=== PATIENT | female | born 1945 | race Caucasian/White ===

== ENCOUNTER 2016-08-24 21:26 | Emergency (ER) | payer BC, MEDICARE, OTHER ==
[~2016-08-24] VITALS: Ht 165.1 cm; Wt 83.2 kg
[~2016-08-24 21:26] MED LIST: BRIN3SUS OPB; CALCTAB5 PO; LEVO50TA6 PO; MULT-506 PO; TRAV0.00 OP
[2016-08-24 21:30] VITALS: TEMP 36.9; Ht 165.1 cm; Wt 83.2 kg
--- NOTE | 2016-08-24 22:10 | EMERGENCY ROOM VISIT NOTE ---
History Report prepared by Maximino: Nino Mckinney Under the Supervision of: Dr. Lebron Khan M.D. 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 The patient slipped on the rug in her kitchen and fell onto her left side. During the fall, she injured her left arm and left knee. She states that her arm is significantly worse than her knee. She did not hit her head or lose consciousness. She also did not experiencing any abnormal symptoms prior to this fall. She denies any dizziness, numbness, headache, chest pain, or recent illness. At its worst, her arm pain is a 10/10, but right now it is only a 5/10. She describes it as a dull ache at rest, and a sharp pain with movement. Movement worsens her pain. She states her knee is not bothering her at the moment. 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 A total of 10 systems reviewed and were otherwise negative. Past Medical & Surgical Medical Problems: (1) Anemia Family History Cancer Diabetes mellitus Heart disease Hypertension Social History Smoking Status: Never Smoker Smokeless Tobacco Use: No Drug Use: none Marital Status: Housing Status: lives with family Occupation Status: employed Current/Historical Medications Scheduled Brinzolamide-Brimonidine Tartr (Simbrinza), 1 DROP OPB BID Calcium (Caltrate), 600 MG PO DAILY Levothyroxine Sodium (Levothyroxine Sodium), 1 TAB PO DAILY Multivitamin (Multivitamin), 1 TAB PO DAILY Travoprost (Travatan Z), 1 DROPS OP HS Scheduled PRN Oxycodone Ir (Roxicodone Ir), 1-2 TAB PO Q4H PRN for Pain Allergies Coded Allergies: Aspirin (Verified Allergy, Unknown, CAUSES HER TO BLEED, 07/12/15) Physical Exam Vital Signs Date Time Temp Pulse Resp B/P Pulse Ox O2 Delivery O2 Flow Rate FiO2 08/24/16 23:20 93 18 149/93 94 Room Air 08/24/16 21:30 36.9 87 18 158/94 96 Room Air Physical Exam GENERAL: Patient is uncomfortable appearing and in mild acute distress. HEENT: No acute trauma, normocephalic atraumatic, mucous membranes moist, no nasal congestion, no scleral icterus. NECK: No stridor, no adenopathy, no meningismus, trachea is midline. LUNGS: No dyspnea. Clear to auscultation and equal bilaterally. No wheeze, no rhonchi. HEART: Regular rate and rhythm. No murmurs, rubs, gallops appreciated. ABDOMEN: Soft, nontender, bowel sounds positive, no masses appreciated, no peritonitis. BACK: No midline tenderness, no CVA tenderness EXTREMITIES: Tenderness to palpation of the left deltoid extending to the left posterior shoulder. Pain with ROM of the left shoulder. Mild bruising to the left anterior knee. No pain with ROM. No pain with palpation. Distal N/V intact. NEUROLOGIC: Alert and oriented, no acute motor or sensory deficits, no focal weakness, cranial nerves grossly intact. SKIN: No rash, no jaundice, no diaphoresis. Medical Decision & Procedures ER Provider Diagnostic Interpretation: X ray results are stated below per my interpretation and the radiologist's interpretation. LEFT SHOULDER MIN 2 VIEWS ROUTINE CLINICAL HISTORY: Left shoulder pain status post trauma COMPARISON: None. DISCUSSION: There is a nondisplaced fracture of the humeral neck. The fracture extends to the greater tuberosity. There is no dislocation. IMPRESSION: Fracture of the left humeral neck and greater tuberosity. No evidence of dislocation. Electronically signed by: Moshe Taylor M.D. 08/24/2016 10:54 PM Dictated Date/Time: 08/24/2016 10:52 PM LEFT HUMERUS MIN 2 VIEWS ROUTINE CLINICAL HISTORY: Left humeral pain status post trauma COMPARISON: None. DISCUSSION: There is a proximal humeral fracture with involvement of the greater tuberosity and humeral neck. No dislocations are visualized. No additional humeral fractures are visualized. IMPRESSION: Nondisplaced proximal humeral fracture Electronically signed by: Moshe Taylor M.D. 08/24/2016 10:52 PM Dictated Date/Time: 08/24/2016 10:51 PM Medications Administered Medications (Trade) Dose Ordered Sig/Rao Route Start Time Stop Time Status Last Admin Dose Admin Oxycodone/ Acetaminophen (Percocet 5-325mg Tab) 1 tab NOW ONCE PO 08/24/16 22:15 08/24/16 22:16 DC 08/24/16 22:27 1 TAB Ondansetron HCl (Zofran Odt) 4 mg ONE ONCE PO 08/24/16 22:15 08/24/16 22:16 DC 08/24/16 22:26 4 MG Oxycodone HCl (Roxicodone Immediate Rel 5MG Home Pack) 1 homepack UD ONCE PO 08/24/16 23:15 08/24/16 23:16 DC 08/24/16 23:15 1 HOMEPACK Ondansetron HCl (ZOFRAN ODT 4MG Home Pack) 1 homepack UD ONCE PO 08/24/16 23:15 08/24/16 23:16 DC 08/24/16 23:14 1 HOMEPACK ED Course 2147: The patient was evaluated in room C9. A complete history and physical exam was performed. 2215: Ordered Ondansetron HCl 4 mg PO, Oxycodone/Acetaminophen 1 tab PO 2315: Ordered Ondansetron HCl 1 homepack PO, Oxycodone HCl 1 homepack PO 2320: Reevaluated the patient. Discussed results and discharge instructions: She verbalized understanding and agreement. The patient is ready for discharge. Medical Decision Differential diagnoses include dislocation, fracture, sprain, and contusion. 71 yr old very pleasant female with mechanical fall resulting in left shoulder injury. Initially some left knee pain but none now and walking without issue. She clearly has non-displace humeral head fracture. No other injuries. No head injury, neck pain and is not on blood thinners. Did well with narcotic here. Reviewed instructions regarding narcotics and humeral head fractures. Case management in to discuss with patient to help with ortho follow up in 1 week. Impression Primary Impression: Fracture of humeral head, left, closed Scribe Attestation The scribe's documentation has been prepared under my direction and personally reviewed by me in its entirety. I confirm that the note above accurately reflects all work, treatment, procedures, and medical decision making performed by me. Departure Information Dispostion Home / Self-Care Prescriptions Oxycodone Ir (Roxicodone Ir) 5 Mg Tab 1-2 TAB PO Q4H Y for Pain, #25 TAB Prov: Lebron Khan M.D. 08/24/16 Referrals Ra Monteiro M.D. (PCP) Jeronimo Kwon D.O. Forms HOME CARE DOCUMENTATION FORM, IMPORTANT VISIT INFORMATION Patient Instructions ED Fx Upper Ext, My [facility] Additional Instructions You have received a narcotic pain medication prescription. These medications may cause drowsiness and should not be used with other sedative medications. Do not drive, drink alcohol, perform dangerous activities, nor make important decisions after taking these medications. termination clerk use or inappropriate use may lead to addiction. Problem Qualifiers Primary Impression: Fracture of humeral head, left, closed Encounter type: initial encounter Qualified Codes: S42.292A - Other displaced fracture of upper end of left humerus, initial encounter for closed fracture
[2016-08-24] MEDS ORDERED: OXYCODONE/ACETAMINOPHEN 5-325 TAB PO ONE (22:15)
[2016-08-24] MEDS ORDERED: ONDANSETRON 4MG OD TAB PO ONE (22:15)
--- NOTE | 2016-08-24 22:54 | DIAGNOSTIC IMAGING REPORT ---
LEFT HUMERUS MIN 2 VIEWS ROUTINE CLINICAL HISTORY: Left humeral pain status post trauma COMPARISON: None. DISCUSSION: There is a proximal humeral fracture with involvement of the greater tuberosity and humeral neck. No dislocations are visualized. No additional humeral fractures are visualized. IMPRESSION: Nondisplaced proximal humeral fracture Electronically signed by: Moshe Taylor M.D. 08/24/2016 10:52 PM Dictated Date/Time: 08/24/2016 10:51 PM
--- NOTE | 2016-08-24 22:56 | DIAGNOSTIC IMAGING REPORT ---
LEFT SHOULDER MIN 2 VIEWS ROUTINE CLINICAL HISTORY: Left shoulder pain status post trauma COMPARISON: None. DISCUSSION: There is a nondisplaced fracture of the humeral neck. The fracture extends to the greater tuberosity. There is no dislocation. IMPRESSION: Fracture of the left humeral neck and greater tuberosity. No evidence of dislocation. Electronically signed by: Moshe Taylor M.D. 08/24/2016 10:54 PM Dictated Date/Time: 08/24/2016 10:52 PM
[2016-08-24] MEDS ORDERED: OXYC1TAB3 PO (23:12)
[2016-08-24] MEDS ORDERED: ONDANSETRON HOME PACK 4MG OD TAB PO ONE (23:15)
[2016-08-24] MEDS ORDERED: OXYCODONE IR HOME PACK PO ONE (23:15)
[2016-08-24 23:20] VITALS: BP 149/93; PULSE 93; O2SAT 94
== END 2016-08-24 23:25 | disposition home or self-care (01) ==
LOC: EDBD 21:26 → C.EDC 21:29
DX: S42.292A Other displaced fracture of upper end of left humerus, initial encounter for closed fracture (principal); W18.09XA Striking against other object with subsequent fall, initial encounter; D64.9 Anemia, unspecified; Z83.3 Family history of diabetes mellitus; Z82.49 Family history of ischemic heart disease and other diseases of the circulatory system

== ENCOUNTER → 2016-10-30 | Outpatient (CLI) | payer MEDICARE ==
[~2016-10-30] MED LIST changes: +OXYC1TAB3 PO
== END | disposition home or self-care (01) ==
LOC: C.CPL 13:19
DX: S42.295D Other nondisplaced fracture of upper end of left humerus, subsequent encounter for fracture with routine healing (principal); X58.XXXD Exposure to other specified factors, subsequent encounter

== ENCOUNTER → 2016-12-20 | Outpatient (CLI) | payer MEDICARE, OTHER ==
--- NOTE | 2016-12-20 13:22 | MAMMOGRAPHY REPORT ---
BILATERAL DIGITAL SCREENING MAMMOGRAM WITH CAD: 12/20/2016 CLINICAL HISTORY: Routine screening. Patient has no complaints. TECHNIQUE: Current study was also evaluated with a Computer Aided Detection (CAD) system. Bilateral CC and MLO views were obtained. COMPARISON: Comparison is made to exams dated: 10/03/2015 mammogram, 09/29/2014 mammogram, 09/27/2013 m ammogram, 09/24/2012 mammogram, 09/25/2011 mammogram, and 09/12/2010 mammogram - [facility]. BREAST COMPOSITION: There are scattered areas of fibroglandular density in both breasts. FINDINGS: No suspicious masses, calcifications, or areas of architectural distortion are noted in ei ther breast. There has been no significant interval change compared to prior exams. Bilateral circum scribed benign-appearing masses are stable. IMPRESSION: ACR BI-RADS CATEGORY 2: BENIGN There is no mammographic evidence of malignancy. A 1 year screening mammogram is recommended. The pa tient will receive written notification of the results. Approximately 10% of breast cancers are not detected with mammography. A negative mammographic report should not delay biopsy if a clinically suggestive mass is present. Hermila Waggoner M.D. ah/:12/20/2016 12:15:39 Solar Sales Energy Advisor: Gloria UGARTE(Rachel)(M), [facility] letter sent: Normal 1/2 BI-RADS Code: ACR BI-RADS Category 2: Benign
== END | disposition home or self-care (01) ==
LOC: C.MAMM 08:42
PROVIDERS: ATTEND Obstetrics & Gynecology
DX: Z12.31 Encounter for screening mammogram for malignant neoplasm of breast (principal)

== ENCOUNTER → 2017-02-06 | Outpatient (CLI) | payer MEDICARE | END | disposition home or self-care (01) | LOC: C.LABBFT 11:46 | PROVIDERS: ATTEND Internal Medicine | DX: E03.9 Hypothyroidism, unspecified (principal) ==

== ENCOUNTER → 2017-02-13 | Outpatient (CLI) | payer MEDICARE ==
[2017-02-13 12:10] LABS: HEMATOCRIT 39.5 % (37-47); MEAN CORPUSCULAR HEMOGLOBIN 29.7 pg (25-34); MEAN CORPUSCULAR HGB CONC 32.7 g/dl (32-36); MEAN PLATELET VOLUME 11.6 fL (7.4-10.4); PLATELET COUNT 188 K/uL (130-400); RED BLOOD COUNT 4.34 M/uL (4.2-5.4); WHITE BLOOD COUNT 4.46 K/uL (4.8-10.8)
[2017-02-13 12:17] LABS: ALT/SGPT 19 U/L (12-78); BLOOD UREA NITROGEN 20 mg/dl (7-18); BUN/CREATININE RATIO 22.1 (10-20); CALCIUM 9.4 mg/dl (8.5-10.1); CARBON DIOXIDE 27 mmol/L (21-32); CHLORIDE 107 mmol/L (98-107); CHOLESTEROL 219 mg/dl (0-200); CREATININE 0.89 mg/dl (0.60-1.20); GLUCOSE 81 mg/dl (70-99); POTASSIUM 4.1 mmol/L (3.5-5.1); SODIUM 141 mmol/L (136-145); TRIGLYCERIDES 91 mg/dl (0-150); VERY LOW DENSITY LIPOPROT CALC 18 mg/dl
[2017-02-13 12:20] LABS: ALKALINE PHOSPHATASE 65 U/L (45-117); AST/SGOT 15 U/L (15-37); CHOLESTEROL/HDL RATIO 2.8; HDL CHOLESTEROL 78 mg/dl; LDL CHOLESTEROL CALCULATED 123 mg/dl
== END | disposition home or self-care (01) ==
LOC: C.LABBFT 08:28
PROVIDERS: ATTEND Internal Medicine
DX: E78.5 Hyperlipidemia, unspecified (principal)

== ENCOUNTER → 2017-03-10 | Outpatient (CLI) | payer MEDICARE ==
[~2017-03-10] MED LIST changes: -OXYC1TAB3 PO
== END | disposition home or self-care (01) ==
LOC: C.MAMM 08:14
PROVIDERS: ATTEND Obstetrics & Gynecology
DX: Z12.31 Encounter for screening mammogram for malignant neoplasm of breast (principal); M85.88 Other specified disorders of bone density and structure, other site; M85.851 Other specified disorders of bone density and structure, right thigh; M85.852 Other specified disorders of bone density and structure, left thigh

== ENCOUNTER → 2017-03-24 | Outpatient (CLI) | payer MEDICARE | END | disposition home or self-care (01) | LOC: C.LABBFT 14:42 | PROVIDERS: ATTEND Internal Medicine | DX: M81.0 Age-related osteoporosis without current pathological fracture (principal) ==

== ENCOUNTER → 2017-12-24 | Outpatient (CLI) | payer MEDICARE, OTHER ==
[~2017-12-24] MED LIST changes: -BRIN3SUS OPB; +CALC600T37 PO; -CALCTAB5 PO; +CHOL1000 PO; +OXYC-57 PO; -TRAV0.00 OP
--- NOTE | 2017-12-24 13:39 | MAMMOGRAPHY REPORT ---
BILATERAL DIGITAL SCREENING MAMMOGRAM TOMOSYNTHESIS WITH CAD: 12/24/2017 CLINICAL HISTORY: Routine screening. Patient has no complaints. TECHNIQUE: The study was acquired using full field digital technology and interpreted from soft copy. Breast tomosynthesis in addition to standard 2D mammography was performed. Current study was also ev aluated with a Computer Aided Detection (CAD) system. COMPARISON: Comparison is made to exams dated: 12/20/2016 mammogram, 10/03/2015 mammogram, 09/29/2014 ma mmogram, 09/27/2013 mammogram, 09/24/2012 mammogram, and 09/25/2011 ultrasound - [facility] ter. BREAST COMPOSITION: There are scattered areas of fibroglandular density in both breasts. FINDINGS: There is a possible focal area of architectural distortion in the superior, posterior left breast, thought to project along the posterior nipple line on the CC view, and another possible area of architectural distortion in the lateral, middle one third of the right breast on the CC view, for which additional bilateral spot compression tomosynthesis views and possible ultrasound are recommend ed. There are stable benign circumscribed masses bilaterally. No obvious new masses, or suspicious calci fications are seen bilaterally. IMPRESSION: ACR BI-RADS CATEGORY 0: INCOMPLETE EVALUATION: NEED ADDITIONAL IMAGING EVALUATION The possible focal architectural distortion in the 12:00 posterior left breast and possible area of a rchitectural distortion seen in one view in the lateral right breast need additional imaging evaluati on. The patient will be called to schedule an appointment. Some breast cancers are not detected with mammography. A negative mammographic report should not paige y biopsy if a clinically suggestive mass is present. Sachi Proctor M.D. ay/:12/24/2017 08:43:33 Employment Legal Assistant: RT Ivett(R)(M), [facility] letter sent: Addl Imaging 0 BI-RADS Code: ACR BI-RADS Category 0: Incomplete Evaluation: Need Additional Imaging Evaluation
== END | disposition home or self-care (01) ==
LOC: C.MAMM 08:09
PROVIDERS: ATTEND Obstetrics & Gynecology
DX: Z12.31 Encounter for screening mammogram for malignant neoplasm of breast (principal); N64.89 Other specified disorders of breast

== ENCOUNTER → 2017-12-31 | Outpatient (CLI) | payer MEDICARE ==
--- NOTE | 2018-01-01 15:44 | MAMMOGRAPHY REPORT ---
BILATERAL DIGITAL DIAGNOSTIC MAMMOGRAM TOMOSYNTHESIS AND BILATERAL ULTRASOUND: 12/31/2017 CLINICAL HISTORY: 72-year-old woman called back from screening mammography for possible focal archite ctural distortion in the 12:00 to 1:00 posterior left breast and possible area of architectural disto rtion in the lateral, middle to anterior right breast on the CC view. Patient has a family history of breast cancer = sister. TECHNIQUE: Spot compression tomosynthesis CC and MLO views of each breast were obtained. COMPARISON: Comparison is made to exams dated: 12/24/2017 mammogram, 12/20/2016 mammogram, 10/03/2015 tiffany mogram, 09/29/2014 mammogram, 09/27/2013 mammogram, and 09/25/2011 ultrasound - [facility]. Ultrasound of was performed. BREAST COMPOSITION: There are scattered areas of fibroglandular density in both breasts. FINDINGS: The spot compression tomosynthesis views of the right breast demonstrate effacement of the possible area of distortion in the lateral, middle to anterior breast. There is no definite focal ar ea of distortion, suspicious mass or other suspicious abnormality. A stable benign circumscribed 11 mm round mass with associated coarse calcification in the upper outer right breast and stable benign circumscribed oval 15 mm mass in the lower inner right breast. Targeted ultrasound was also performed in the right breast slightly lateral to the nipple and no susp icious solid or cystic mass was identified. A round circumscribed 11 mm mass was identified in the 1 0:00 axis, correlating with the benign circumscribed mass with associated coarse calcifications seen mammographically. The spot compression tomosynthesis views of the left breast demonstrate a persistent subtle linear fo mildred area of asymmetry and associated architectural distortion, measuring approximately 3.7 cm in AP d imension by approximately 6 mm in transverse dimension. Further characterization with ultrasound was performed. Targeted ultrasound was performed throughout the upper outer, 12:00 and 11:00 axes of the left breast . A possible subtle texture difference is identified in the 1:00 left breast, 5 cm from the nipple b ut this sonographic finding is considered to vague to biopsy with ultrasound guidance. Therefore, wo uld prefer to biopsy this focal distortion with tomosynthesis mammograms. IMPRESSION: ACR BI-RADS CATEGORY 4: SUSPICIOUS, ULTRASOUND ACR BI-RADS CATEGORY 4: SUSPICIOUS 1. There is a persistent subtle focal asymmetry/focal architectural distortion measuring 3.7 cm in A P dimension in the 12:00 to 1:00 far posterior left breast, without definitive sonographic correlate identified. Further characterization with stereotactic tomosynthesis guided biopsy is recommended. 2. Effacement of the right lateral possible area of distortion and no suspicious sonographic correla te identified. This most likely represented overlapping fibroglandular tissue and is considered rico gn. These results and recommendations were discussed with the patient at the time of the exam. She tenta tively scheduled the left breast biopsy prior to leaving the department. Some breast cancers are not detected with mammography. A negative mammographic report should not paige y biopsy if a clinically suggestive mass is present. Sachi Proctor M.D. ay/:12/31/2017 14:58:38 Lead Atg Developer: RT Katherin(R)(M), [facility]; [facility] letter sent: Abnormal 4/5 OVERALL STUDY BIRADS: 4 Suspicious abnormality
== END | disposition home or self-care (01) ==
LOC: C.MAMM 12:52
PROVIDERS: ATTEND Obstetrics & Gynecology
DX: R92.8 Other abnormal and inconclusive findings on diagnostic imaging of breast (principal)

== ENCOUNTER → 2018-01-12 | Outpatient (CLI) | payer MEDICARE ==
--- NOTE | 2018-01-12 09:20 | Discharge Instructions ---
Discharge Instructions Procedure Procedure Date: Jan 12, 2018. Reason for visit: Left Focal Asymmetry/Distortion. Discharge Discharge Date: Jan 12, 2018. Discharge Diagnosis: status post breast biopsy Instructions Activity Recommendations: Additional Limitations (see below) Return to School/Work: no limitations Recommended Home Diet: No Limitations Provider Instructions: ACTIVITY RECOMMENDATIONS: * No lifting, pushing, pulling or exercising the affected side for three days. RETURN TO SCHOOL/WORK: * You may return to work/school after the procedure, but do not perform any strenuous activities for 24 to 48 hours. MEDICATIONS: * Tylenol (two 325 mg) every four to six hours if needed for mild pain (if not allergic to Tylenol). DIET: * Resume previous diet. SPECIAL CARE INSTRUCTIONS: * Keep biopsy site dry for 24 hours. May shower after 24 hours, but do not soak (bathe) incision. * May remove Tegaderm (plastic patch) 24 hours after procedure * Leave the steri-strips on for one week. Allow the steri-strips to fall off by themselves. If not off after one week, you may remove them. You may place a Bandaid crosswise over the strips, if desired. * Apply ice 10 minutes on and 10 minutes off as needed. * Wear a bra at bedtime to sleep more comfortably for 2-3 days. * Your referring physician should have the results after approximately 5 to 7 business days. * Call for unusual bleeding, fever, drainage, etc or if you have any questions call during normal business hours or after hours call Dr Waggoner, [phone]. FOLLOW UP VISIT: Follow-up with Referring Physician as scheduled. Allergies Coded Allergies: Aspirin (Verified Allergy, Unknown, CAUSES HER TO BLEED, 07/12/15) Alendronate (Unverified Adverse Reaction, Unknown, BODY DOESN'T FOSAMAX, ) [facility] Recommendations: Call your doctor if: * Temperature above 101 degrees * Pain not relieved by pain medicine ordered * There is increased drainage or redness from any incision * You have any unanswered questions or concerns. Your Doctors Instructions noted above were prepared by provider Hermila Waggoner. Patient Signature Section: Patient Instructions Signature Page Jenny Green Patient (or Guardian) Signature/Date: I have read and understand the instructions given to me by my caregivers. Caregiver/RN/Doctor Signature/Date: The above-named patient and/or guardian has received patient instructions on this date. + Original Patient Signature Page (only) stays with chart. Please make copy for patient.
--- NOTE | 2018-01-12 13:57 | MAMMOGRAPHY REPORT ---
UNILATERAL LEFT DIGITAL DIAGNOSTIC MAMMOGRAM TOMOSYNTHESIS: 01/12/2018 CLINICAL HISTORY: Status post left breast stereotactic biopsy. TECHNIQUE: Breast tomosynthesis in addition to standard 2D mammography was performed. Postprocedural left CC and ML tomosynthesis images were obtained. COMPARISON: Comparison is made to exams dated: 12/31/2017 mammogram, 12/24/2017 mammogram, 12/20/2016 tiffany mogram, 10/03/2015 mammogram, 09/29/2014 mammogram, and 12/31/2017 ultrasound - [facility] nter. BREAST COMPOSITION: There are scattered areas of fibroglandular density in left breast. FINDINGS: A new biopsy marker clip is seen within the left 12:00 posterior breast status post stereot actic biopsy of left breast focal asymmetry and associated architectural distortion. The biopsy clip is located at the site of the biopsied asymmetry on the cc view, however, there is probable mild sup erior migration of the biopsy marker clip from the biopsy site of approximately 2 cm, likely due to a ccordion effect, although the asymmetry is not well seen on the ML view. No significant postbiopsy h ematoma is seen. IMPRESSION: POST PROCEDURE IMAGING FOR MARKER PLACEMENT New biopsy marker clip status post left breast stereotactic biopsy. Note that there is probable supe rior migration of the biopsy clip from the biopsy site. Pathology results are pending. Some breast cancers are not detected with mammography. A negative mammographic report should not paige y biopsy if a clinically suggestive mass is present. Hermila Waggoner M.D. /:01/12/2018 09:55:47 Test Technician: RT Ivett(Rachel)(M), [facility] BI-RADS Code: Post Procedure Imaging For Marker Placement
--- NOTE | 2018-01-12 13:57 | MAMMOGRAPHY REPORT ---
STEREOTACTIC GUIDED BIOPSY LEFT BREAST: 01/12/2018 CLINICAL HISTORY: Focal asymmetry and associated architectural distortion in the left superior breast at approximately 12 to 1:00. PATIENT CONSENT: The procedure, risks, benefits, and alternatives of stereotactic biopsy with clip pl acement were discussed with the patient, and verbal and written consent was obtained. A timeout was performed immediately prior to the procedure. PROCEDURE DESCRIPTION: With tomosynthesis stereotactic guidance, aseptic technique, and lidocaine as a local anesthetic (1% lidocaine to anesthetize the skin and 1% lidocaine with epinephrine to anesthe tize the deeper tissues), the focal asymmetry with associated architectural distortion in the left 12 to 1:00 posterior breast was sampled multiple times with a 9-gauge vacuum-assisted biopsy needle (Mocapay). The path of approach was caudocranial. A metallic marker clip was placed at the biopsy site. Postprocedural mammograms were obtained to confirm clip placement; see separate dictation for details. Direct pressure was applied at the biopsy site until hemostasis was achieved. The patient tolerated the procedure without complication. She was given wound care instructions. COMPARISON: Comparison is made to exams dated: 12/31/2017 mammogram, 12/20/2016 mammogram, 12/24/2017 tiffany mogram, 12/31/2017 ultrasound, 10/03/2015 mammogram, and 09/29/2014 mammogram - [facility] nter. IMPRESSION: STEREOTACTIC GUIDED BIOPSY Tomosynthesis stereotactic guided biopsy of focal asymmetry and associated architectural distortion i n the left posterior breast at approximately 12 to 1:00, with clip placement. The patient will recei ve pathology results from her referring provider. Hermila Waggoner M.D. /:01/12/2018 09:53:21 Cutter Finisher: RT Ivett(R)(M), [facility]
== END | disposition home or self-care (01) ==
LOC: C.MAMM 08:34
PROVIDERS: ATTEND Obstetrics & Gynecology
DX: R92.8 Other abnormal and inconclusive findings on diagnostic imaging of breast (principal); N64.89 Other specified disorders of breast

== ENCOUNTER 2024-02-02 06:11 | Observation (INO) ==
--- NOTE | 2023-12-26 14:00 | PAT Medication Instructions ---
Medication Instructions Date of Service December 26, 2023 Home Medications calcium carbonate (Calcium 600) 600 mg PO QAM cholecalciferol (vitamin D3) 25 mcg (1,000 unit) tablet 1,000 unit PO QAM multivitamin 1 tab PO QAM timolol maleate 0.5 % once daily eye drops 1 drp ophthalmic (eye) BID atorvastatin 20 mg tablet 20 mg PO QAM doxycycline hyclate 50 mg tablet 50 mg PO BID levothyroxine 50 mcg tablet 50 mcg PO UD neomycin-polymyxin B-dexameth eye drops,suspension 3 drp ophthalmic (eye) QID Continue as directed levothyroxine 50 mcg tablet 50 mcg PO UD STOP taking 24 hours before surgery neomycin-polymyxin B-dexameth eye drops,suspension 3 drp ophthalmic (eye) QID DO NOT take the morning of surgery calcium carbonate (Calcium 600) 600 mg PO QAM cholecalciferol (vitamin D3) 25 mcg (1,000 unit) tablet 1,000 unit PO QAM multivitamin 1 tab PO QAM Take morning of surgery With a small sip of water, OTHERWISE NOTHING TO EAT OR DRINK AFTER MIDNIGHT: timolol maleate 0.5 % once daily eye drops 1 drp ophthalmic (eye) BID atorvastatin 20 mg tablet 20 mg PO QAM doxycycline hyclate 50 mg tablet 50 mg PO BID Take evening before surgery timolol maleate 0.5 % once daily eye drops 1 drp ophthalmic (eye) BID doxycycline hyclate 50 mg tablet 50 mg PO BID Other Notes If you have any questions please call us at [phone] or [phone] or [phone] or [phone]
--- NOTE | 2024-01-07 11:03 | Anesthesiology Consultation ---
Date of Service January 07, 2024 Assessment & Plan (1) Encounter for pre-operative examination: - Outpatient joint assessment: Patient is currently scheduled for inpatient pathway. If re-evaluated and patient/surgeon requests outpatient pathway, patient is acceptable candidate for outpatient joint program from anesthesia standpoint pending surgeon's office assessment of pt motivation/support/completion of same day joint program preop requirements. Chart Review Chart Review: Acceptable Risk for Surgery and Patient seen in Pre Admission Testing Teaching & Discussion Pre-Anesthesia Teaching/Discussion Notes: Instructed NPO after midnight before surgery, except medications with 15 cc of water. Medication instructions provided according to the PAT guidelines. History Surgery Operation Date: 02/02/24 08:40 Proposed Procedures p Left Total Knee Arthroplasty - Germain Coleman, Height/Weight Height: 5 ft 5.5 in Weight: 78.5 kg Allergies Allergy/AdvReac Type Severity Reaction Status Date / Time aspirin Allergy Severe CAUSES HER Verified 12/25/23 07:54 TO BLEED alendronate sodium AdvReac Intermediate Body Verified 12/25/23 07:54 doesn't tolerate FOSAMAX "gets nauseated" watermelon AdvReac Intermediate Vomiting Verified 12/25/23 07:54 Medications Home Medications Medication Instructions Recorded Confirmed Last Taken calcium carbonate (Calcium 600) 600 mg PO QAM 09/22/18 12/25/23 04/11/22 cholecalciferol (vitamin D3) 25 1,000 unit PO QAM 09/22/18 12/25/23 04/11/22 mcg (1,000 unit) tablet multivitamin 1 tab PO QAM 09/22/18 12/25/23 04/11/22 timolol maleate 0.5 % once daily 1 drp ophthalmic (eye) BID 08/27/23 12/25/23 Un known eye drops atorvastatin 20 mg tablet 20 mg PO QAM 12/25/23 12/25/23 Unknown levothyroxine 50 mcg tablet 50 mcg PO UD 12/25/23 12/25/23 Unknown Past Medical History Medical History (Updated 01/07/24 @ 11:10 by Naty Gonzalez PA-C) Anemia 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 Exercise / Class Metabolic Activity II 4-5 Yardwork/Stairs/Walk up hill (denies chest discomfort or shortness of breath with one flight of stairs) Past Family History Family History Aunt Family history of diabetes mellitus Sister Family history of diabetes mellitus Breast cancer Father Lung cancer Other No family history of adverse response to anesthesia Denies family history of Ovarian cancer Prostate cancer Myocardial infarction Colorectal cancer Past Surgical History Surgical History History of arthroscopy of left shoulder History of bilateral cataract extraction History of bilateral tubal ligation History of colonoscopy History of hysterectomy History of left breast biopsy benign History of tonsillectomy and adenoidectomy History of tooth extraction History of wisdom tooth extraction Status post glaucoma surgery Past Anesthesia History No Hx of Anesthesia Complications and Other (several family members with PONV) History of PONV History of PONV (denies needing scop patch) and Hx of Motion Sickness Social History Smoking Status: Never smoker Do You Dip or Chew Tobacco: No Hx Alcohol Use: Yes Alcohol type: wine alcohol intake frequency: holidays/special occasions only Hx Substance Use: No substance use type: does not use Review of Systems Patient denies chest pain, shortness of breath, dyspnea on exertion, snoring, witnessed apneas, fever, chills, cough, wheezing, or palpitations. Physical Exam Vital Signs Vitals BP 132/82 P 76 TEMP 97.5 SP02 96% on RA RESP 18 Physical Patient resting comfortably in chair in no acute distress, alert and oriented, responding appropriately throughout visit Full cervical extension range of motion without pain TMD 3.5 finger breadths Mallampati Score 2 Dentition: several caps, denies chipped or loose teeth, implants or bridges Lungs: normal respiratory effort. Good air movement, clear throughout to auscultation, no adventitious breath sounds Cardiac: regular rate and rhythm, no murmurs noted Carotid arteries: negative bruit bilat Lab Results Anesthesia Preop Results Results Anesthesia Widget: WBC 5.11 K/ul (4.8-10.8) 01/07/24 Hgb 12.7 g/dl (12.0-16.0) 01/07/24 Hct 38.2 % (37.0-47.0) 01/07/24 Plt 161 K/uL (130-400) 01/07/24 Na 139 mmol/L (136-145) 01/07/24 K 4.0 mmol/L (3.5-5.1) 01/07/24 Cl 106 mmol/L (98-107) 01/07/24 CO2 27 mmol/L (21-32) 01/07/24 BUN 18 mg/dl (6-23) 01/07/24 Creat 0.81 mg/dl (0.6-1.2) 01/07/24 Glucose Level 91 mg/dl (70-99(Fasting)) 01/07/24 PT 10.2 Seconds (9.0-12.0) 01/07/24 PTT 28 Seconds (21-31) 01/07/24 INR 0.9 (0.9-1.1) 01/07/24 Blood Type O Positive 01/07/24 Antibody Screen NEGATIVE 01/07/24 Testing Electrocardiogram Date: 01/07/24 NSR, rate 75 bpm Minimal voltage criteria for LVH, may be normal variant Nonspecific T wave abnormality inferolateral leads Chest X-Ray Date: 01/07/24 No acute process.
[~2024-02-02 06:11] MED LIST changes: +ALLERGY Noted to ORDERED Medication SCH; -CALC600T37 PO; -CHOL1000 PO; -LEVO50TA6 PO; -MULT-506 PO; -OXYC-57 PO
[2024-02-02] MEDS ORDERED: ROPIVACAINE 0.5% 5 MG/ML 30 ML VIAL ONE (06:17)
[2024-02-02] MEDS ORDERED: BUPIVACAINE 0.5 % 5 MG/1 ML PF 10ML VIAL ONE (06:17)
[2024-02-02] MEDS ORDERED: BUPIVACAINE 0.25% PF 30 ML VIAL ONE (06:19)
--- NOTE | 2024-02-02 06:31 | History & Physical Bridge Note ---
Date of Service February 02, 2024 History & Physical Bridge Note I have examined the patient, reviewed the History & Physical and in the interval since the performance of the History & Physical I have noted the following changes of clinical significance: no changes noted
[2024-02-02] MEDS: LR 60ML/HR IV SCH (06:52)
[2024-02-02] MEDS: GABAPENTIN 300 MG CAP PO SCH (06:54)
[2024-02-02] MEDS: FAMOTIDINE 20 MG TAB PO SCH (06:54)
[2024-02-02] MEDS: ACETAMINOPHEN 500 MG TAB PO SCH ×2 (06:54→14:12)
[2024-02-02] MEDS: LR 500ML BOLUS, THEN 15ML/HR IV SCH (07:00)
[2024-02-02] MEDS: dexAMETHasone**PF** 10 MG/ML VIAL IV SCH (07:08)
[2024-02-02] MEDS ORDERED: MIDAZOLAM HCL 1 MG/ML 2ML VIAL ONE (07:37)
[2024-02-02] MEDS ORDERED: fentaNYL citrate PF 100 MCG/2 ML VIAL ONE (07:37)
[2024-02-02] MEDS ORDERED: ATROPINE SULFATE 0.1 MG/ML 10ML SYR IV PRN (08:11)
[2024-02-02] MEDS ORDERED: ePHEDrine sulfate 50 MG/ML AMP IV PRN (08:11)
[2024-02-02] MEDS ORDERED: fentaNYL citrate PF 100 MCG/2 ML VIAL IV PRN (08:11)
[2024-02-02] MEDS ORDERED: ONDANSETRON INJ 2 MG/ML 2 ML VIAL IV PRN ×2 (08:11→11:20)
[2024-02-02] MEDS: TRANEXAMIC ACID 1,000 MG **IV Pre-op IV SCH (08:22)
[2024-02-02] MEDS: ceFAZolin 2000MG 2,000 MG/15 ML SYR IV SCH ×2 (08:51→17:44)
[2024-02-02] MEDS ORDERED: LIDOCAINE 2% 2 ML VIAL/AMP(20MG/ML) INFIL ONE (09:30)
[2024-02-02] MEDS ORDERED: PROPOFOL IV EMULSION 10 MG/ML 20 ML VIAL IV ONE (09:30)
[2024-02-02] MEDS: ROPIV 0.5% 246mg, Ketorolac 30mg, EPINEPHrine 0.5mg in NSS INFIL SCH (09:37)
[2024-02-02] MEDS: TRANEXAMIC ACID 1,000 MG **IV Intra-op IV SCH (09:50)
--- NOTE | 2024-02-02 09:54 | Operative Report ---
PG Post Operative Report Pre & Post Diagnosis Operation Date: 02/02/24 10:20 Pre-Op Diagnosis: Degenerative Joint Disease Knee Left Post-Op Diagnosis: Degenerative Joint Disease Knee Left I identified the patient and participated in the time-out.: Yes Procedure Operation Date: 02/02/24 10:20 Actual Procedures p Left Total Knee Arthroplasty(Left) - Germain Coleman DO Surgeon Germain Coleman DO Glove Operator Germain Benton PA-C Estimated Blood Loss 30 Findings Consistent with Post-Op Diagnosis Specimens Left femoral tibial bone Description of Procedure Implants used: I used a Radha Persona total knee arthroplasty system with a size 8 narrow femur, E tibia, 31 oval patella, and a size 11 medial congruent polyethylene be aring. All components were cemented in place with Biomet cement. Jenny arrived [facility] for the above procedure. She was seen in the preoperative holding area and the operative extremity was identified and signed. She was given a preoperative antibiotic, TXA, a spinal anesthetic and an adductor nerve block. She was taken back to the operating room and laid on the table in supine position. She was given basic sedation. The operative knee was then prepped and draped in sterile fashion. A timeout was done, and the patient and the operative extremity was properly identified. A midline incision was made directly over the patella. Dissection was taken down to the extensor mechanism. A subvastus arthrotomy was used. The medial retinaculum was released and the fat pad was mostly excised. The knee was flexed and the ACL, PCL, and meniscus were removed. A drill was sent down the center of the femoral canal followed by an intramedullary celio. Off that celio a distal femoral cutting block was placed. 9 mm was resected off the distal femur at 5 of valgus. A posterior referencing AP sizing guide was then placed on the distal femur. The femur measured to be a size 8. 2 drill holes were placed in 3 of external rotation. A 4-in-1 cutting block was then impacted into place. Anterior, posterior, and chamfer cuts were then made. The proximal tibia was then exposed. An external tibial alignment guide was placed. A tibial cut guide was then anchored in place and the proximal tibia was then resected. The posterior aspect of the knee was then opened up and any additional meniscus fragments and osteophytes were removed. The tibia measured to be a size E. The tibial plate was then placed in the appropriate rotation and the tibia was drilled and punched. Trial components were then placed. I used a size 11 medial congruent polyethylene insert. The knee was brought through a full range of motion and felt to be stable. The peg holes for the femoral component were then drilled. The patella was then everted and 9 mm was resected off the posterior aspect of the patella. The patella measured to be a size 31 oval. 3 peg holes were then drilled. A trial patella was placed. The knee was once again brought through a full range of motion and felt to be stable. Trial components were then removed. The surrounding soft tissues were injected with 100 cc of an orthopedic pain control cocktail. All components were then cemented into place with Biomet cement. The final polyethylene insert was then snapped into place. Once cement was dry the tourniquet was deflated. Hemostasis was obtained. A dilute betadyne lavage was then done for 3 minutes. The joint was then irrigated with normal saline solution. The subvastus arthrotomy was then closed with #1 Vicryl suture. The skin was closed with 2-0 Vicryl, 3-0V lock suture, and hermelindo. A soft compressive dressing was placed. She was then transferred to a hospital bed and taken to the postanesthesia care unit in stable condition. She tolerated the procedure well. Germain Benton PA-C, was present for the entire procedure. He was critical for patient positioning, prepping, draping, retraction exposure, wound closure and application of sterile dressing. I attest to the content of the Intraoperative Record and any orders documented therein. Any exceptions are noted below.
[2024-02-02] MEDS ORDERED: MAGNESIUM HYDROXIDE SUSP 30 ML UDC PO PRN (11:20)
[2024-02-02] MEDS ORDERED: bisacodyL 10 MG SUPP PR PRN (11:20)
[2024-02-02] MEDS ORDERED: HYDROmorphone INJ 0.5 MG/0.5 ML SYR IV PRN (11:20)
[2024-02-02] MEDS ORDERED: oxyCODONE HCL IR 5 MG TAB (IMMEDIATE RELEASE) PO PRN (11:20)
[2024-02-02] MEDS ORDERED: NALOXONE HCL 0.4 MG/1 ML VIAL/CARP IV PRN (11:20)
[2024-02-02] MEDS ORDERED: METOCLOPRAMIDE HCL INJ 5 MG/ML 2 ML VIAL IV PRN (11:20)
--- NOTE | 2024-02-02 11:32 | Anesthesiology Progress Note ---
Date of Service February 02, 2024 Anesthesia Post Procedure Vital Signs Vital Signs: Temp Pulse Resp BP BP Pulse Ox O2 Del Method 02/02/24 11:00 36.4 C L 77 16 138/80 100 Room Air 02/02/24 10:50 36.1 C L 71 21 139/76 97 Room Air 02/02/24 10:40 67 14 137/73 96 Room Air 02/02/24 10:30 69 18 145/79 H 97 Room Air 02/02/24 10:20 75 23 130/105 H 100 Oxymask 02/02/24 10:10 36.3 C L 77 17 132/81 96 Oxymask 02/02/24 07:20 170/91 H 02/02/24 07:11 171/98 H 02/02/24 06:49 36.5 C 76 20 183/100 H 192/92 H 100 Room Air O2 Flow Rate 02/02/24 11:00 02/02/24 10:50 02/02/24 10:40 02/02/24 10:30 02/02/24 10:20 4 02/02/24 10:10 4 02/02/24 07:20 02/02/24 07:11 02/02/24 06:49 Pain Intensity Left Knee: Pain Intensity: 0 Transfer of Care Handoff Completed per policy Notes Mental Status: alert / awake / arousable Patient Amnestic to Procedure: Yes Nausea / Vomiting: adequately controlled Pain: adequately controlled Airway Patency, RR, SpO2: stable & adequate BP & HR: stable & adequate Hydration State: stable & adequate Neuraxial Anesthesia: was administered and sensory block is resolving Anesthetic Complications: no major complications apparent and Pt Satisfied with anesthetic care
[2024-02-02] MEDS: SODIUM CHLORIDE 0.9% 1,000 ML IV SCH (11:39)
[2024-02-02] MEDS: KETOROLAC TROMETHAMINE 15 MG/ML VIAL IV SCH (11:45)
--- NOTE | 2024-02-02 11:59 | XRay Report ---
XR knee LT 1 or 2V routine HISTORY: 78 years-old Female Surgical Post Op left knee arthroplasty COMPARISON: 12/04/2022 TECHNIQUE: 2 views of the left knee FINDINGS: Corticated subcentimeter loose bodies within the suprapatellar space measuring up to 8 mm are unchang ed. Satisfactory alignment of the total joint arthroplasty and patellar resurfacing. Anterior midline skin hermelindo are present along with expected postoperative soft tissue swelling and deep tissue air. IMPRESSION: Satisfactory alignment of the total joint arthroplasty. ACT 112: Negative or not required by law. The above report was generated using voice recognition software. It may contain grammatical, syntax o r spelling errors. Electronically signed by: Jr Moctezuma M.D. 02/02/2024 11:58 AM
[2024-02-02] MEDS ORDERED: ONDANSETRON INJ 2 MG/ML 2 ML VIAL ONE (12:20)
[2024-02-02] MEDS: DOCUSATE SODIUM 100 MG CAP PO SCH (21:20)
[2024-02-02] MEDS: SENNA 8.6 MG TAB PO SCH (21:20)
[2024-02-02] MEDS: TIMOLOL MALEATE 0.5% OP SOLN 5 ML BTL OP SCH (21:21)
[2024-02-02] MEDS: ASPIRIN 81 MG ECTAB PO SCH (21:23)
[2024-02-03] MEDS: LEVOTHYROXINE SODIUM 50 MCG TABLET PO SCH (05:33)
[2024-02-03 07:20] VITALS: BP 152/84; PULSE 77; RESP 18; TEMP 97.5; O2SAT 100
--- NOTE | 2024-02-03 07:30 | Orthopedic Progress Note ---
Date of Service February 03, 2024 Assessment & Plan (1) Status post left knee replacement: Overall she is doing well. She is not having much pain in the left knee. She will be seen by physical therapy today for ambulation and range of motion exercises. She is on aspirin for DVT prophylaxis. The nursing staff can change her dressing after physical therapy. She can be discharged home later today. She will follow-up orthopedics in 2 weeks. Subjective Jenny was seen and examined at bedside this morning. Overall she is doing fairly well. She is not having much pain in the left knee. She has been up and ambulating to the bathroom. She has no complaints.. Review of Systems All systems reviewed & are unremarkable except as noted in HPI & below. Physical Exam On physical examination left knee, the dressing is clean and dry. Her leg is out full extension. She has active dorsiflexion plantarflexion of her left ankle.. Results & Data Results & Data Laboratory Results . Diagnostic Findings Postoperative x-rays of the left knee show the prosthesis to be in anatomic alignment without any evidence of fracture complication, or loosening.. PG Care Time/CCT Total # of Minutes Spent Total Time Spent with Patient: Total time spent is greater than 50% in coordination of care (as documented) at patient's floor/unit and/or counseling patient: Coding Level of Care Code 69205 Post Operative Follow-Up Diagnoses Status post left knee replacement Z96.652
--- NOTE | 2024-02-03 07:33 | Discharge Summary ---
Date of Service February 03, 2024 Principal Diagnosis Same as "Discharge Diagnosis" noted below under Discharge Instructions. Discharge Exam On physical examination left knee, the dressing is clean and dry. Her leg is out full extension. She has active dorsiflexion plantarflexion of her left ankle.. Discharge Data Procedures Performed Operation Date: 02/02/24 10:20 Actual Procedures p Left Total Knee Arthroplasty(Left) - Germain Coleman DO Ordered Studies 02/02/24 05:00 US - OR guided needle placemen Routine Hospital Course (1) Status post left knee replacement: On February 02, 2024 Jenny arrived at [facility] and underwent a left knee replacement without complication. She had a spinal anesthetic. Postoperatively she was transferred to the general orthopedic floors. Her hospital course was uneventful. On postop day #1, her vital signs were stable and her pain was well-controlled. She was able to participate well with physical therapy doing ambulation and range of motion exercises. She was then discharged to home. She will follow-up with orthopedics in 2 weeks. PG Care Time/CCT Total # of Minutes Spent Total Time Spent with Patient: Total time spent is greater than 50% in coordination of care (as documented) at patient's floor/unit and/or counseling patient: Discharge Plan Discharge Items Patient Disposition: Home - Self-Care Reason For Visit: DJD Knee Left Discharge Diagnosis: Left knee replacement Activity: Per Instructions section Non-emergency contact: Surgeon Call non-emergency contact if: your wound has increased redness and your wound has increased drainage Follow-up/Referrals: Jenae Bejarano CRNP [Primary Care Provider] - Diet: Regular Addtl Attending Provider Instructions: Activity and Therapy Recommendations: * If you are using [facility] then therapy will be provided at your home until they feel you have accomplished all of your goals. * If you are using [facility] then Physical Therapy will be provided until they feel you are ready to start Outpatient Physical Therapy. * If you are not using home therapy then Outpatient Physical Therapy should start about 3-5 days from your day of surgery. Therapy will last about 6-10 weeks * It is important not to put a pillow under your knee when you are relaxing or sleeping. It is just as important to make sure you are getting your knee perfectly straight as it is to regain your knee bend. * You were shown a series of exercises in the hospital. Do these exercises three times each day including the exercises you were shown in physical therapy. * Get up and walk several times each day. For the first four weeks, try not to stand or walk for more than one hour at a time. If you do stand or walk for more than one hour, you will not hurt anything, but your leg will likely swell. * As you feel comfortable, you may change from the walker or crutches to a cane and then to independent walking. Medications: * Narcotic You will likely be sent home from the hospital with a prescription for the narcotic pain medication that worked best throughout your stay. * Cefadroxil -take the antibiotic twice a day for 10 days to help prevent infection. * Aspirin Most patients will be required to take Aspirin 81mg twice a day for 6 weeks after surgery. This is obtained [id number] and a prescription is not necessary. * Other medications may be prescribed for specific circumstances. If you have any questions, please call the office at . * Resume previous home medications unless otherwise instructed TEDs/Elastic Stockings: The white elastic stockings help limit swelling and prevent blood clots from forming in your legs.~ The more you wear them, the more they work. Wear them for six weeks. Dressing Care: The dressing can be changed after physical therapy on postop day #1. Daily dry dressing changes for a few days, especially if the incision is still draining some. If the incision is not draining then you may leave the hermelindo open to air. If there is a little bit of drainage or if the hermelindo are getting stuck on your clothing then cover the incision with a dry dressing. The hermelindo will be removed at your 2 week follow-up appointment. Showering: You may shower 5 days from the day of surgery as long as the incision is no longer draining. You may shower with the hermelindo exposed. Let soapy water run over the hermelindo and pat them dry. Do not scrub or soak the incision. Things To Watch For: * Drainage from the incision site that occurs more than one week after your surgery. * Increased redness at the incision site. * Fever above 102 degrees Fahrenheit. * Unusual chest pain or shortness of breath. * Call [facility] at with any of the above problems Follow-Up Visit: Follow-up with Dr. Coleman's PA (Germain Benton) 2-3 weeks after your day of surgery. He will remove your hermelindo and answer any questions. If you have any additional questions or concerns, Dr Coleman is usually in the office at the same time and will be available An appointment was probably scheduled when you signed-up for surgery in the office. If you have any questions call Office Instructions: More detailed instructions as well as Frequently Asked Questions were provided in a folder by our office when you signed-up for surgery. Please review these instructions when you get home. If you have any further questions or concerns, please feel free to call the office at [phone] Pending Studies at Discharge: No Stand-Alone Forms: My [facility] Medications and DC Order Prescriptions: New oxycodone 5 mg Tablet 5 mg PO Q4H PRN (Reason: pain) Qty: 30 0RF cefadroxil 500 mg capsule 500 mg PO BID 10 Days Qty: 20 0RF aspirin 81 mg Tablet,Delayed Release (Dr/Ec) 81 mg PO BID 42 Days Qty: 0 0RF Continued levothyroxine 50 mcg tablet 50 mcg PO UD Qty: 90 3RF Rx Instructions: 50 mcg PO every morning on an empty stomach with 8 ounces of water and eat nothing for 30 minutes. on Friday take 1/2 tablet ; timolol maleate 0.5 % drops, once daily 1 drp ophthalmic (eye) BID multivitamin Tablet 1 tab PO QAM calcium carbonate [Calcium 600] 600 mg calcium (1,500 mg) Tablet 600 mg PO QAM cholecalciferol (vitamin D3) 1,000 unit Tablet 1,000 unit PO QAM atorvastatin 20 mg tablet 20 mg PO QAM Discharge Orders: Discharge Order (Routine); Ordered 02/03/24 Ordered By: Germain Coleman Admission Data Admit Date/Time: 02/02/24 10:12 Attending Provider: Germain Coleman Admit Provider: Germain Coleman Primary Care Provider: Jenae Bejarano
[2024-02-03] MEDS: MULTIVITAMIN TAB PO SCH (09:51)
[2024-02-03] MEDS: ATORVASTATIN 20 MG TAB PO SCH (09:51)
[2024-02-03] MEDS: dexAMETHasone 4 MG TAB PO SCH (10:40)
[2024-02-08] MEDS ORDERED: LEVOTHYROXINE SODIUM 25 MCG TABLET PO SCH (06:30)
== END 2024-02-03 11:21 | disposition home or self-care (01) ==
LOC: ASU 06:11 → 3E 06:11
DX: Z88.8 Allergy status to other drugs, medicaments and biological substances; Z79.899 Other long term (current) drug therapy; M17.12 Unilateral primary osteoarthritis, left knee; Z79.82 Long term (current) use of aspirin; E78.5 Hyperlipidemia, unspecified; K21.9 Gastro-esophageal reflux disease without esophagitis; Z79.890 Hormone replacement therapy